=== PATIENT | female | born 1985 | race Caucasian/White ===

== ENCOUNTER 2020-04-27 16:09 | Emergency (ER) | payer BC, SELFPAY ==
--- NOTE | ~2020-04-27 | CT_ITS ---
EXAMINATION: CT HEAD WITHOUT CONTRAST CLINICAL INFORMATION: Dizziness and giddiness. COMPARISON: None TECHNIQUE: Contiguous axial imaging was performed from the skull base to vertex without intravenous administration of contrast. This CT examination was performed using dose optimization techniques as appropriate, variously including the following: *Automated exposure control *Adjustment of mA and/or kV according to patient size (this includes techniques or standardized protocols for targeted exams where dose is matched to indication/reason for exam; i.e. extremities or head) *Use of iterative reconstruction technique DLP: 804 mGy-cm FINDINGS: There is no acute extra-axial bleed, masses or midline shift. There is a punctate hyperdensity seen in the right parietal lobe adjacent to the occipital horn right lateral ventricle image 18/2 and coronal image 227/7. It measures approximately 8 mm long and 52 Hounsfield units suspicious for a small bleed. No abnormal mass effect or midline shift is seen. [place] to white matter differentiation is well preserved. No extra-axial fluid collections are identified. The ventricles are normal in size. There is no abnormal attenuation within the brain parenchyma. The osseous structures and soft tissues are normal. The mastoid air cells and visualized portions of the paranasal sinuses are well aerated. CT/CT head/brain wo con IMPRESSION: Punctate hypodensity in the right parietal lobe adjacent to the perivesical region suspicious for punctate/petechial hemorrhage. Differential diagnoses may include hyperdense vessels. If clinically indicated MRI of the brain can be performed. Results were discussed with urgent care [employer] Tasneem Stewart and ER [employer]OURNEY[employer]OWER[employer]SE [employer]PER[employer] Jim Dang at 4:00 PM
--- NOTE | ~2020-04-27 | MR_ITS ---
EXAMINATION: MR BRAIN WITHOUT CONTRAST CLINICAL INFORMATION: CT scan question bleed. COMPARISON: Head CT performed earlier today. TECHNIQUE: Multiplanar, multisequence imaging of the brain was performed without intravenous contrast. FINDINGS: There is susceptibility signal is seen within the region of hyperdensity identified on the head CT along the lateral margin of the posterior right lateral ventricular body. A small focus of susceptibility signal is present within the right putamen which may represent an area of chronic mineralization or chronic hemorrhage. No vasogenic edema is seen at this locale to suggest acuity. A few nonspecific foci of T2 hyperintensity are seen within the bilateral periventricular and deep cerebral white matter. The corpus callosum appears normal. The posterior fossa structures appear normal. The imaged portions of the upper cervical cord demonstrate normal signal. The ventricles are normal in size and configuration without evidence of hydrocephalus. No mass is seen. The major arterial flow voids appear preserved at the skull base. Incidentally noted is central protrusion at the C4-C5 level which results in mild mass effect on the ventral cord. MR/MR head/brain wo con IMPRESSION: No hemorrhage is seen to correspond to the focus of hyperdensity seen on the prior head CT. A focus of chronic mineralization or microhemorrhage is present within the right putamen. There is no acute infarct, lobar hemorrhage, mass, or extra-axial fluid collection. Scattered foci of T2 hyperintensity are seen within the periventricular and deep cerebral white matter. The imaging findings are nonspecific however given the periventricular distribution and the orthogonal orientation of some of these foci to the corpus callosum, a demyelinating process should be considered. Incidentally noted disc herniation at C4-C5 causing mild mass effect on the ventral cord. A nonemergent cervical spine MRI could be performed for further evaluation if there is concern for myelopathy.
[2020-04-27 15:40] VITALS: BP 120/73; PULSE 84; RESP 21; TEMP 36.9; O2SAT 97
[2020-04-27 15:47] LABS: MANUAL DIFF FLAG NO
[2020-04-27 15:52] LABS: Basophils Absolute Auto 0.1 X10*3/uL (0.0-0.2); Basophils Percent Auto 0.7 % (0-2); Eosinophils Absolute Auto 0.1 X10*3/uL (0.0-0.4); Eosinophils Percent Auto 0.8 % (0-4); Hemoglobin 12.8 g/dl (12.0-16.0); Imm Gran Abs Auto 0.02 X10*3/uL (0.00-0.03); Imm Gran Pct Auto 0.3 % (0.0-0.4); Lymphocytes Absolute Auto 2.4 X10*3/uL (1.2-4.9); Lymphocytes Percent Auto 31.1 % (20-40); Mean Corpuscular HGB Conc 32.8 g/dl (31.0-35.0); Mean Corpuscular Hemoglobin 29.5 pg (27.0-33.0); Mean Corpuscular Volume 89.9 fL (80-98); Monocytes Absolute Auto 0.6 X10*3/uL (0.1-1.2); Monocytes Percent Auto 7.4 % (2-11); Neutrophils Absolute Auto 4.6 X10*3/uL (2.0-8.3); Neutrophils Percent Auto 59.7 % (45-73); Platelet Count 307 X10*3/uL (160-400); Red Blood Count 4.34 X10*6/uL (4.20-5.50); Red Cell Distribution Width 13.2 % (11.0-16.0); White Blood Count 7.7 X10*3/uL (4.8-10.8)
[2020-04-27 15:54] LABS: UPreg QC Valid YES; Urine Pregnancy NEGATIVE (NEGATIVE)
[2020-04-27 16:19] LABS: Anion Gap 14 (12-20); Blood Urea Nitrogen 16 mg/dL (9-16); Calcium 9.5 mg/dL (8.4-10.2); Carbon Dioxide 26 mmol/L (22-29); Chloride 103 mmol/L (96-108); Estimated Glomerular Filt Rate > 60; Glucose Random 84 mg/dL (60-115); Potassium 4.6 mmol/L (3.3-5.1); Sodium 138 mmol/L (135-145)
--- NOTE | 2020-04-27 16:29 | ED_ITS ---
HPI - Headache General Time Seen by Provider: 04/27/20 16:14 Source: patient Mode of arrival: ambulatory Limitations: no limitations History of Present Illness HPI Narrative: Patient complaining of earache and headache for last 10 days treated with amoxicillin for ear infection had a CT scan done today which read questionable bleed versus hyperdense area on the right periventricular area. Patient been having headache is gradual onset no nausea no vomiting no light sensitive no history of hypertension no head injury no focal deficit Related Data Previous Rx's Medication Instructions Recorded amoxicillin 875 mg-potassium 1 tab PO BID 10 Days #20 tab 04/27/20 clavulanate 125 mg tablet uduacsezus-nkwrxpnshmrpz-hqsv 1 cap PO Q6H PRN #20 cap 04/27/20 [Fioricet] cetirizine 10 mg tablet 10 mg PO DAILY PRN #30 tab 04/27/20 Allergies Allergy/AdvReac Type Severity Reaction Status Date / Time No Known Allergies Allergy Verified 04/27/20 16:14 Review of Systems Review of Systems: Constitutional : No Weight loss, No Fever, No Chills ENT/Mouth : No sore throat, No Rhinorrhea Eyes: No Eye Pain, No Swelling Cardiovascular : No Chest Pain, no palpitations Respiratory : No Cough, No Sputum, no shortness of breath Gastrointestinal : no Nausea, No Vomiting, No Diarrhea, No abdominal Pain, no black stools Genitourinary : No Dysuria, No Urinary Frequency Musculoskeletal : No joint pain, No Myalgias, No Joint Swelling Skin : No Skin Lesions, No rash Neuro : No Weakness, No Numbness, No Dizziness, + Headache Psych : No Anxiety/Panic, No Depression Heme/Lymph: No Bruising, No Lymphadenopathy Endocrine : No Polyuria, No Polydipsia All other systems reviewed and are negative Physical Exam Vital Signs: Vital Signs: Last Vital Signs Temp 98.8 F 04/27/20 20:05 Pulse 72 04/27/20 20:05 Resp 20 04/27/20 20:05 BP 100/63 04/27/20 20:05 Pulse Ox 99 04/27/20 20:05 Appearance: Alert. Oriented X3. No acute distress. Eyes: Pupils equal, round and reactive to light. ENT: Pharynx normal. Neck: Normal inspection. Neck supple. CVS: Normal heart rate and rhythm. Pulses normal. Respiratory: No respiratory distress. Breath sounds normal. Abdomen: Soft and nontender. Bowel sounds are present, no mass palpable, no CVA tenderness Skin: Skin warm and dry. Normal skin color. Normal skin turgor. Extremities: No lower extremity edema. Neuro: Oriented X 3. No motor deficit. No sensory deficit. Course Course Course Narrative: MRI of brain negative for any acute bleed chronic changes patient advised to follow-up with neurologist MDM - Headache MDM Narrative Medical decision making narrative: Patient headache likely typical migraine CT scan finding likely hyperdense calcium deposit not a bleed case discussed with radiologist advised MRI to confirm will get MRI Lab Data Result diagrams: 04/27/20 15:03 04/27/20 15:03 Labs: Lab Results 04/27/20 04/27/20 04/27/20 Range/Units 15: 15:03 15:03 WBC 7.7 (4.8-10.8) X10*3/uL RBC 4.34 (4.20-5.50) X10*6/uL Hgb 12.8 (12.0-16.0) g/dl Hct 39.0 (37-47) % MCV 89.9 (80-98) fL MCH 29.5 (27.0-33.0) pg MCHC 32.8 (31.0-35.0) g/dl RDW 13.2 (11.0-16.0) % Plt Count 307 (160-400) X10*3/uL MPV 9.0 L (9.4-12.3) fL Immature Gran % (Auto) 0.3 (0.0-0.4) % Neut % (Auto) 59.7 (45-73) % Lymph % (Auto) 31.1 (20-40) % [place] % (Auto) 7.4 (2-11) % Eos % (Auto) 0.8 (0-4) % Baso % (Auto) 0.7 (0-2) % Lymph # (Auto) 2.4 (1.2-4.9) X10*3/uL [place] # (Auto) 0.6 (0.1-1.2) X10*3/uL Eos # (Auto) 0.1 (0.0-0.4) X10*3/uL Baso # (Auto) 0.1 (0.0-0.2) X10*3/uL Abs Immat Gran (auto) 0.02 (0.00-0.03) X10*3/uL Absolute Neuts (auto) 4.6 (2.0-8.3) X10*3/uL Absolute Nucleated RBC 0.000 (0.0-0.012) X10*3/uL Nucleated RBC % (auto) 0.0 (0.0-0.2) /100WBC Sodium 138 (135-145) mmol/L Potassium 4.6 (3.3-5.1) mmol/L Chloride 103 (96-108) mmol/L Carbon Dioxide 26 (22-29) mmol/L Anion Gap 14 (12-20) BUN 16 (9-16) mg/dL Creatinine 0.94 (0.5-1.4) mg/dL Estim Creat Clear Calc TNP Estimated GFR > 60 Random Glucose 84 (60-115) mg/dL Calcium 9.5 (8.4-10.2) mg/dL TSH 1.88 (0.32-4.0) uIU/mL Urine Test NEGATIVE (NEGATIVE) Discharge Plan Discharge Clinical Impression: Migraine headache Qualifiers: Migraine type: unspecified Status migrainosus presence: without status migrainosus Intractability: not intractable Qualified Code(s): G43.909 - Migraine, unspecified, not intractable, without status migrainosus Patient Disposition: Home, Self-Care Instructions: Migraine Headache (ED) Additional Instructions: Take medication as advised for headache and follow with urologist Prescriptions: New xlsvcixksf-jirqlmgtrzuoi-ffql [Fioricet] 50-300-40 mg capsule 1 cap PO Q6H PRN (Reason: pain) Qty: 20 RF: 0 No Action amoxicillin-pot clavulanate [Augmentin] 875-125 mg tablet 1 tab PO BID 10 Days Qty: 20 RF: 0 cetirizine [Zyrtec] 10 mg tablet 10 mg PO DAILY PRN (Reason: allergy symptoms) Qty: 30 RF: 0 Referrals: Lynn Rachel MD [Physician] - 1 week Interventions: ED Discharge Assessment Last Done: 04/27/20 20:31 Discharge Date/Time: 04/27/20 20:30
[2020-04-27 16:41] LABS: TSH reflex Free T4 1.88 uIU/mL (0.32-4.0)
--- NOTE | 2020-04-27 17:25 | PC.NURSE ---
presently in MRI
--- NOTE | 2020-04-27 17:58 | PC.NURSE ---
patient returned from MRI.
--- NOTE | 2020-04-27 17:59 | PC.NURSE ---
patient alert and oriented times four presently. sent from pcp for f/u MRI after a ct scan showed a small brain bleed . Patient states had double ear infection and was placed on ABTs. symptoms of headache and dizziness continued. Provider sent atient for ct and after results to ED.
[2020-04-27 18:15] VITALS: BP 115/67; PULSE 69; RESP 17; TEMP 37.2; O2SAT 96
[2020-04-27 20:05] VITALS: BP 100/63; PULSE 72; RESP 20; TEMP 37.1; O2SAT 99
[2020-04-29 01:42] LABS: EBV-VCA IgM Ab <36.00 U/mL
[2020-04-29 11:20] LABS: Monotest Negative (Negative)
== END 2020-04-27 20:30 | disposition home or self-care (01) ==
LOC: HO.ED 16:09
PROVIDERS: Emergency Provider Internal Medicine; Visit Provider Nurse Practitioner Family
DX: G43.909 Migraine, unspecified, not intractable, without status migrainosus (principal)
CPT/HCPCS: 36415; 70450; 70551; 80048; 81025; 84443; 85025; 86308; 86664; 86665; 87086; 99282; 99285

== ENCOUNTER 2020-05-02 13:05 | Emergency (ER) | payer BC, SELFPAY ==
--- NOTE | 2020-05-02 | ECG_ITS ---
Test Reason : CHEST PAIN Blood Pressure : / mmHG Vent. Rate : 065 BPM Atrial Rate : 065 BPM P-R Int : 140 ms QRS Dur : 076 ms QT Int : 394 ms P-R-T Axes : 066 063 027 degrees QTc Int : 409 ms Normal sinus rhythm Normal ECG No previous ECGs available Referred By: Generic ED Physician Electronically Signed By:NAOMI LEACH
--- NOTE | ~2020-05-02 | XR_ITS ---
EXAMINATION: XR CHEST CLINICAL INFORMATION: Chest pain. COMPARISON: None TECHNIQUE: Frontal view of the chest was obtained. FINDINGS: The lungs are well-expanded and clear of acute process. The heart size and pulmonary vascularity is normal. No gross bony abnormality seen. XR/XR chest 1V IMPRESSION: Unremarkable chest exam
[2020-05-02 13:35] VITALS: BP 119/73; PULSE 86; RESP 16; TEMP 36.8; O2SAT 100; BMI 29.5
--- NOTE | 2020-05-02 15:38 | ED.CHESTPAIN ---
HPI - Chest Pain General Chief Complaint: Chest Pain Stated Complaint: L LOW CP,SOB X'S DAYS,FEELS OFF,JUMBLED THOUGHTS Time Seen by Provider: 05/02/20 13:30 History of Present Illness HPI narrative: Patient complains of an episode of chest pain shortness of breath palpitations and tingling in fingers and toes along with feeling very anxious at home today at about 9 in the morning approximately 6-7 hours ago She has no chest pain or shortness of breath now and is concerned about the resolved episode This happened at rest, there are no exertional symptoms no nausea no vomiting no sweating Related Data Previous Rx's Medication Instructions Recorded yikpazcxwc-bqmfmsfbgscia-ipyk 1 cap PO Q6H PRN #20 cap 04/27/20 [Fioricet] escitalopram oxalate 5 mg tablet 5 mg PO DAILY 30 Days #30 tab 05/01/20 meclizine 25 mg tablet 25 mg PO TID PRN 7 Days #21 tab 05/01/20 meloxicam 15 mg tablet 15 mg PO DAILY PRN 30 Days #30 tab 05/01/20 lorazepam [Ativan] 0.5 mg PO TID PRN #10 tab 05/02/20 Allergies Allergy/AdvReac Type Severity Reaction Status Date / Time No Known Allergies Allergy Verified 05/01/20 10:22 Review of Systems Review of Systems: Episode of chest pain shortness of breath tingling that is resolved of the positives Negatives are no weakness no fever no chills no exertional symptoms no abdominal pain no nausea no vomiting no diarrhea, no rash no leg swelling no calf pain no numbness no weakness no confusion PMFSH Past Medical History Medical History (Updated 05/03/20 @ 00:01 by Tommie Morin) Anxiety Cervical herniated disc Migraines Surgical History (Updated 05/01/20 @ 10:26 by Jewels Mcmahon MD) History of carpal tunnel release of both wrists Family History Family History Mother Thyroid cancer Arthritis Pre-diabetes Father Heart disease History of heart attack Social History Social History Alcohol intake: never Smoking Status: Never smoker Physical Exam Vital Signs: Vital Signs: Last Vital Signs Temp 98.3 F 05/02/20 17:43 Pulse 63 05/02/20 17:43 Resp 16 05/02/20 17:43 BP 106/57 L 05/02/20 17:43 Pulse Ox 99 05/02/20 17:43 Body Mass Index 29.5 General appearance no acute distress, A&O x3, cooperative Head is normocephalic atraumatic The pharynx is moist with normal mucous membranes, no drooling, voice is normal The neck is supple The heart rate and rhythm are regular no murmur Chest is clear to auscultation bilaterally with full symmetric little equal breath sounds, no tenderness to chest wall, no pain with deep breath The abdomen is soft nontender Extremities no rash no edema no calf tenderness The skin no rashes Neuro cranial nerves 2-12 intact, motor is 5/5 x4 gait is normal interaction is normal cerebellar exam is normal, sensation is intact and symmetrical Course Course Course Narrative: Patient evaluated for episode at home that lasted for several minutes and included tingling in fingers pain with deep breath feeling of heart racing and chest pain and shortness of breath Troponin was negative and she had had symptoms for over 6 hours, EKG did not show any ischemic event, chest x-ray was normal Patient admits to previous episodes of anxiety and it is possible that this was another anxiety attack as she is experiencing stress at this time She is advised to follow with her doctor for further evaluation and she is given a script for Ativan as a trial to see if she gets another episode of Ativan relieves it for possible anxiety attack She was concerned about some findings on an MRI from previous visit which had findings of nonspecific periventricular foci of the corpus callosum a deny Ling process might be considered according to the MRI She has seen her primary doctor about this and does have follow-up with a neurologist to determine if any further imaging is needed EKG was normal sinus rhythm with a rate of 65, no acute ST changes no acute ischemic changes QRS duration was normal QT was normal MDM - Chest Pain Lab Data Attestation: I reviewed the patient's lab results. Result diagrams: 05/02/20 15:37 05/02/20 15:37 Labs: Lab Results 05/02/20 05/02/20 05/02/20 Range/Units 15:37 15:37 15:37 WBC 7.8 (4.8-10.8) X10*3/uL RBC 4.29 (4.20-5.50) X10*6/uL Hgb 12.8 (12.0-16.0) g/dl Hct 38.1 (37-47) % MCV 88.8 (80-98) fL MCH 29.8 (27.0-33.0) pg MCHC 33.6 (31.0-35.0) g/dl RDW 13.2 (11.0-16.0) % Plt Count 351 (160-400) X10*3/uL MPV 8.7 L (9.4-12.3) fL Immature Gran % (Auto) 0.3 (0.0-0.4) % Neut % (Auto) 67.8 (45-73) % Lymph % (Auto) 24.9 (20-40) % [place] % (Auto) 5.4 (2-11) % Eos % (Auto) 0.8 (0-4) % Baso % (Auto) 0.8 (0-2) % Lymph # (Auto) 1.9 (1.2-4.9) X10*3/uL [place] # (Auto) 0.4 (0.1-1.2) X10*3/uL Eos # (Auto) 0.1 (0.0-0.4) X10*3/uL Baso # (Auto) 0.1 (0.0-0.2) X10*3/uL Abs Immat Gran (auto) 0.02 (0.00-0.03) X10*3/uL Absolute Neuts (auto) 5.3 (2.0-8.3) X10*3/uL Absolute Nucleated RBC 0.000 (0.0-0.012) X10*3/uL Nucleated RBC % (auto) 0.0 (0.0-0.2) /100WBC Hold Blue Top SEE NOTE Sodium 139 (135-145) mmol/L Potassium 4.1 (3.3-5.1) mmol/L Chloride 106 (96-108) mmol/L Carbon Dioxide 26 (22-29) mmol/L Anion Gap 11 L (12-20) BUN 15 (9-16) mg/dL Creatinine 0.92 (0.5-1.4) mg/dL Estim Creat Clear Calc 76.8 Estimated GFR > 60 Random Glucose 93 (60-115) mg/dL Calcium 8.9 D (8.4-10.2) mg/dL Troponin I High Sens (<3.5-17.0) ng/L Urine Color Urine Appearance Urine pH (5.0-8.0) Ur Specific [place] (1.005-1.025) Urine Protein (NEG-TRACE) MG/DL Urine Glucose (UA) (NEG) MG/DL Urine Ketones (NEG) MG/DL Urine Blood (NEG) Urine Nitrite (NEG) Ur Leukocyte Esterase (NEG) Urine RBC (0) /HPF Urine WBC (0-4) /HPF Ur Squamous Epith Cells /LPF Urine Bacteria /LPF Urine Test (NEGATIVE) 05/02/20 05/02/20 05/02/20 Range/Units 15:38 15:50 15:50 WBC (4.8-10.8) X10*3/uL RBC (4.20-5.50) X10*6/uL Hgb (12.0-16.0) g/dl Hct (37-47) % MCV (80-98) fL MCH (27.0-33.0) pg MCHC (31.0-35.0) g/dl RDW (11.0-16.0) % Plt Count (160-400) X10*3/uL MPV (9.4-12.3) fL Immature Gran % (Auto) (0.0-0.4) % Neut % (Auto) (45-73) % Lymph % (Auto) (20-40) % [place] % (Auto) (2-11) % Eos % (Auto) (0-4) % Baso % (Auto) (0-2) % Lymph # (Auto) (1.2-4.9) X10*3/uL [place] # (Auto) (0.1-1.2) X10*3/uL Eos # (Auto) (0.0-0.4) X10*3/uL Baso # (Auto) (0.0-0.2) X10*3/uL Abs Immat Gran (auto) (0.00-0.03) X10*3/uL Absolute Neuts (auto) (2.0-8.3) X10*3/uL Absolute Nucleated RBC (0.0-0.012) X10*3/uL Nucleated RBC % (auto) (0.0-0.2) /100WBC Hold Blue Top Sodium (135-145) mmol/L Potassium (3.3-5.1) mmol/L Chloride (96-108) mmol/L Carbon Dioxide (22-29) mmol/L Anion Gap (12-20) BUN (9-16) mg/dL Creatinine (0.5-1.4) mg/dL Estim Creat Clear Calc Estimated GFR Random Glucose (60-115) mg/dL Calcium (8.4-10.2) mg/dL Troponin I High Sens < 3.5 (<3.5-17.0) ng/L Urine Color YELLOW Urine Appearance CLEAR Urine pH 6.0 (5.0-8.0) Ur Specific [place] <= 1.005 (1.005-1.025) Urine Protein NEG (NEG-TRACE) MG/DL Urine Glucose (UA) NEG (NEG) MG/DL Urine Ketones NEG (NEG) MG/DL Urine Blood TRACE (NEG) Urine Nitrite NEG (NEG) Ur Leukocyte Esterase NEG (NEG) Urine RBC 0-2 (0) /HPF Urine WBC 0 (0-4) /HPF Ur Squamous Epith Cells 1+ /LPF Urine Bacteria 1+ /LPF Urine Test NEGATIVE (NEGATIVE) Discharge Plan Discharge Clinical Impression: Chest pain not due to acute coronary syndrome Patient Disposition: Home, Self-Care Additional Instructions: Your workup today did not reveal any dangerous or emergency condition at this moment in time There is a chance her symptoms were from anxiety as some of his symptoms may have been symptoms of an anxiety attack so you can try Ativan if these symptoms return You should not drive for several hours after taking Ativan is it can cause drowsiness Follow with primary doctor for further evaluation Return any time any worse condition or any concerns Prescriptions: New lorazepam [Ativan] 0.5 mg tablet 0.5 mg PO TID PRN (Reason: anxiety) Qty: 10 RF: 0 No Action rxrjvidrrh-cedvoeeywenwc-tlwi [Fioricet] 50-300-40 mg capsule 1 cap PO Q6H PRN (Reason: pain) Qty: 20 RF: 0 escitalopram oxalate 5 mg tablet 5 mg PO DAILY 30 Days Qty: 30 RF: 1 meclizine 25 mg tablet 25 mg PO TID PRN (Reason: dizziness) 7 Days Qty: 21 RF: 0 meloxicam 15 mg tablet 15 mg PO DAILY PRN (Reason: pain) 30 Days Qty: 30 RF: 0 Interventions: ED Discharge Assessment Last Done: 05/02/20 18:50 Discharge Date/Time: 05/02/20 18:53
[2020-05-02 15:42] VITALS: BP 106/55; PULSE 66; RESP 14; TEMP 37; O2SAT 100
[2020-05-02 15:45] LABS: MANUAL DIFF FLAG NO
[2020-05-02 15:46] LABS: Basophils Absolute Auto 0.1 X10*3/uL (0.0-0.2); Basophils Percent Auto 0.8 % (0-2); Eosinophils Absolute Auto 0.1 X10*3/uL (0.0-0.4); Eosinophils Percent Auto 0.8 % (0-4); Hematocrit 38.1 % (37-47); Hemoglobin 12.8 g/dl (12.0-16.0); Imm Gran Abs Auto 0.02 X10*3/uL (0.00-0.03); Imm Gran Pct Auto 0.3 % (0.0-0.4); Lymphocytes Absolute Auto 1.9 X10*3/uL (1.2-4.9); Lymphocytes Percent Auto 24.9 % (20-40); Mean Corpuscular HGB Conc 33.6 g/dl (31.0-35.0); Mean Corpuscular Hemoglobin 29.8 pg (27.0-33.0); Mean Corpuscular Volume 88.8 fL (80-98); Mean Platelet Volume 8.7 fL (9.4-12.3); Monocytes Absolute Auto 0.4 X10*3/uL (0.1-1.2); Monocytes Percent Auto 5.4 % (2-11); Neutrophils Absolute Auto 5.3 X10*3/uL (2.0-8.3); Neutrophils Percent Auto 67.8 % (45-73); Platelet Count 351 X10*3/uL (160-400); Red Blood Count 4.29 X10*6/uL (4.20-5.50); Red Cell Distribution Width 13.2 % (11.0-16.0); White Blood Count 7.8 X10*3/uL (4.8-10.8)
[2020-05-02 15:59] LABS: Appearance Urine CLEAR; Color Urine YELLOW; Glucose Urine UA NEG (NEG); Leukocyte Esterase Urine NEG (NEG); Nitrite Urine NEG (NEG); Specific Gravity - Urine <= 1.005 (1.005-1.025); Urine Blood TRACE (NEG); Urine Ketones NEG (NEG); Urine Protein NEG (NEG-TRACE)
[2020-05-02 16:01] LABS: UPreg QC Valid YES; Urine Pregnancy NEGATIVE (NEGATIVE)
[2020-05-02 16:05] LABS: Bacteria Urine 1+ /LPF; RBC Urine 0-2 /HPF (0); Squamous Epithelial Cell Urine 1+ /LPF; WBC Urine 0 /HPF (0-4)
[2020-05-02 16:12] LABS: Anion Gap 11 (12-20); Blood Urea Nitrogen 15 mg/dL (9-16); Calcium 8.9 mg/dL (8.4-10.2); Carbon Dioxide 26 mmol/L (22-29); Chloride 106 mmol/L (96-108); Creatinine Clr Calc Pharmacy 76.8; Estimated Glomerular Filt Rate > 60; Glucose Random 93 mg/dL (60-115); Potassium 4.1 mmol/L (3.3-5.1); Sodium 139 mmol/L (135-145)
[2020-05-02 16:19] LABS: Troponin-I High Sensitivity < 3.5 ng/L (<3.5-17.0)
[2020-05-02 17:43] VITALS: BP 106/57; PULSE 63; RESP 16; TEMP 36.8; O2SAT 99
== END 2020-05-02 18:53 | disposition home or self-care (01) ==
PROVIDERS: Emergency Provider Emergency Medicine; PCP Internal Medicine
DX: R07.89 Other chest pain (principal)
CPT/HCPCS: 36415; 71045; 80048; 81001; 81025; 84484; 85025; 93005; 99283

== ENCOUNTER 2020-05-08 19:36 | Outpatient (REF) | payer BC, SELFPAY ==
--- NOTE | ~2020-05-08 | MR_ITS ---
EXAMINATION: MR CERVICAL SPINE WITHOUT CONTRAST CLINICAL INFORMATION: Left finger numbness. Left toe numbness. Neck pain. COMPARISON: None TECHNIQUE: MRI of the cervical spine was obtained using routine sequences without contrast. FINDINGS: VERTEBRAL BODIES AND PARASPINAL SOFT TISSUES: The marrow signal is mildly heterogeneous with regions of fatty change. There are no compression fractures. There is a mild retrosubluxation at the C4-C5 level. No marrow or soft tissue edema is seen. The paraspinal soft tissues are unremarkable. The cervical vertebral artery flow voids are maintained. The imaged lung apices are grossly clear. CERVICOMEDULLARY JUNCTION AND VISUALIZED POSTERIOR FOSSA: The craniovertebral junction and imaged portions of the brain parenchyma appear normal. No cord signal abnormality or syrinx is seen. SPINAL LEVELS: C2-C3: No disc pathology, central canal stenosis, or foraminal narrowing. Mild facet arthropathy. C3-C4: No disc pathology. Patent central canal and foramina. C4-C5: Central disc protrusion with mild impression upon the ventral cord and ventral thecal sac. No central canal stenosis or foraminal narrowing. C5-C6: Small left paracentral disc protrusion. No central canal stenosis or foraminal narrowing. C6-C7: No disc abnormality. No central canal stenosis or foraminal encroachment. C7-T1: Well-hydrated normal appearance of the disc. MR/MR cervical spine wo con IMPRESSION: Central disc protrusion and mild retrosubluxation at the C4-C5 level with mild ventral cord deformity. Small left paracentral disc protrusion at the C5-C6 level.
== END 2020-05-08 19:37 | disposition home or self-care (01) ==
LOC: HO.MRI 19:36
PROVIDERS: Visit Provider Internal Medicine
DX: M50.20 Other cervical disc displacement, unspecified cervical region (principal)
CPT/HCPCS: 72141

== ENCOUNTER 2020-05-21 10:00 | Outpatient (RCR) | payer BC, SELFPAY ==
--- NOTE | 2020-05-14 12:28 | MHC.PT.EP ---
[facility] Office [place] Office [place] Office [address] James Freitas [address] [phone] F: [phone] F: [phone] F: [phone] F: [phone] Physical Therapy Plan of Care Date of Evaluation: 05/14/20 Date of Surgery: None Diagnosis: Cervical disk protrusion Assessment: Pt is a 34 y/o F referred to PT with cervical disc protrusion. Chief complaint of neck and shoulder pain, headaches, and intermittent numbness into L UEs and R hand that has been worsening over last several weeks. Pt presents to PT today with pain, numbness in (L) UE, postural abnormalities, cervical ROM deficits, normal DTR's, normal coordination, and periscapular weakness. Pt postural abnormalities are likely related to periscapular weakness, pain, and poor postural awareness. S/s are consistent with cervical derangement causing pain and numbness that interfere with work, sitting, working out, and neck movement. Pt will benefit from skilled PT 2x/week for 5 weeks to improve postural abnormalities, cervical ROM, and periscapular strength to aid in work, working out at home, driving, and ADLs. Of note, pt has an appointment tomorrow to discuss abnormalities with brain MRI and what further w/u will occur. Frequency and Duration: The patient will be seen 2x/week for 5 weeks Short Term Goals: 3 Weeks: 1) Pt will be independent in HEP to maintain gains between sessions 2) Pt pain will decrease 50% to aid in return to work. 3) Pt will self identify and correct posture to reduce cervical strain. Residential Goals: 5 Weeks: 1) Pt will be able to sit >1 hour with no increase in pain to aid work. 2) Pt NDI will be >10/50 to demonstrate significant improvement in function 3) Pt periscapular strength will be >4/5 to aid in reaching and lifting activites. Treatment Plan: Modalities to reduce pain, spasms and effusion. Manual therapy to restore motion and function. Therapeutic exercise to improve strength and flexibility. Neuromuscular re-education for posture and balance. Therapeutic activities to return to functional activities of daily living. Electronically signed by: Daly Haro PT Please sign and return to therapist. Thank you for your referral.
--- NOTE | 2020-06-15 10:45 | MHC.PT.DC ---
[facility] [place] Office [place] Office [place] Office [address] James Freitas [address] [facility] [phone] F: [phone] F: [phone] F: [phone] F: [phone] Physical Therapy Discharge Report Diagnosis: Cervical disk protrusion Date of Surgery: None Date of Evaluation: 05/14/20 Date of Discharge: 06/15/20 Treatments to Date: 2 Cancellations to Date: 0 No Shows to Date: 0 Discharge Status: Patient Elected to Stop Physician Discontinued Tx Discharge Summary: PT called to discharge reporting neurologist would like her to discontinue PT at this time. Electronically signed by: Daly Haro PT Please sign and return to therapist. Thank you for your referral.
== END 2020-06-15 10:47 | disposition home or self-care (01) ==
LOC: HO.PTCHIC 10:00
PROVIDERS: PCP Internal Medicine; Visit Provider Internal Medicine
DX: M50.20 Other cervical disc displacement, unspecified cervical region (principal)
CPT/HCPCS: 97110; 97140; 97162

== ENCOUNTER 2020-06-04 07:00 | Outpatient (RCR) | payer BC, SELFPAY ==
[2020-06-01 07:05] VITALS: BP 138/90
--- NOTE | 2020-06-15 07:45 | MHC.PT.DC ---
[facility] Office [place] Office [place] Office [address] James Freitas [address] [phone] F: [phone] F: [phone] F: [phone] F: [phone] Physical Therapy Discharge Report Diagnosis: Dizziness Date of Surgery: NA Date of Evaluation: 06/01/20 Date of Discharge: Treatments to Date: 1 Cancellations to Date: 0 No Shows to Date: 0 Discharge Status: Patient Elected to Stop Physician Discontinued Tx Discharge Summary: Pt called and self discharged stating her neurologist would like to hold PT at this time. Electronically signed by: Daly Haro PT Please sign and return to therapist. Thank you for your referral.
== END 2020-06-15 10:47 | disposition home or self-care (01) ==
LOC: HO.PTCHIC 07:00
PROVIDERS: PCP Internal Medicine; Visit Provider Internal Medicine
DX: M50.20 Other cervical disc displacement, unspecified cervical region (principal); R42 Dizziness and giddiness
CPT/HCPCS: 97112; 97162

== ENCOUNTER 2020-06-05 14:39 | Outpatient (REF) | payer BC, SELFPAY ==
[2020-06-05 15:49] LABS: Alanine Aminotransferase 16 U/L (0-31); Alkaline Phosphatase 57 U/L (39-117); Aspartate Amino Transferase 22 U/L (5-31); Bilirubin Direct 0.2 mg/dL (0.0-0.5); Bilirubin Total 0.6 mg/dL (0.0-1.0); Total Protein 7.8 g/dL (6.5-8.0)
[2020-06-05 16:33] LABS: Erythrocyte Sedimentation Rate 3 MM/HR (0-20)
[2020-06-06 09:21] LABS: Lyme Abs Screen <0.90 index
[2020-06-06 10:06] LABS: Syphilis Screen Nonreactive (Nonreactive)
[2020-06-06 15:22] LABS: IgA 110 mg/dL (47-310); IgG 1039 mg/dL (600-1640); IgM 200 mg/dL (50-300)
[2020-06-06 20:57] LABS: Anti Nuclear Antibody Screen NEGATIVE (NEGATIVE)
== END 2020-06-05 14:40 | disposition home or self-care (01) ==
LOC: HO.LAB 14:39
PROVIDERS: PCP Internal Medicine; Visit Provider Psychiatry & Neurology Neurology
DX: G37.9 Demyelinating disease of central nervous system, unspecified (principal)
CPT/HCPCS: 36415; 80076; 82784; 85652; 86038; 86039; 86334; 86618; 86780

== ENCOUNTER 2020-06-20 07:35 | Outpatient (REF) | payer BC, SELFPAY ==
[2020-06-20] VITALS (8 sets, daily range): BP systolic 92–124; BP diastolic 3–70; PULSE 60–86; RESP 16–18; TEMP 36.4–36.9; O2SAT 97–100; BMI 30.2
--- NOTE | 2020-06-20 08:00 | OP_ITS ---
SURGEON: Froilan Rachel MD PREOPERATIVE DIAGNOSIS: POSTOPERATIVE DIAGNOSIS: PROCEDURE PERFORMED: Lumbar puncture. ESTIMATED BLOOD LOSS: COMPLICATIONS: ANESTHESIA: ASSISTANTS: SPECIMENS: DESCRIPTION OF PROCEDURE: Risks and benefits of lumbar puncture were discussed with her. Questions were answered before the procedure. She was placed in left lateral position. Lower lumbar area was cleaned with Betadine and draped. 1% lidocaine was injected in CSF cavity. Clear CSF was obtained in 4 tubes. Trocar was replaced and needle removed. Area was cleaned and a Band-Aid applied. Patient tolerated procedure well and CSF was sent to the lab. MD NIYAH Voss/MODL / [id number] MTDD
[2020-06-20 10:05] LABS: Glucose CSF 55 mg/dL; Total Protein CSF 27.2 mg/dL (15-45)
[2020-06-20 10:48] LABS: CSF Appearance Clear, Colorless; CSF Tube # 3
[2020-06-20 10:58] LABS: Appearance CSF CLEAR; CSF Tube # 4; Color CSF COLORLESS; Red Blood Cell CSF 0 MM*3; White Blood Cell CSF 7 MM*3
[2020-06-20 10:59] LABS: CSF Monos 0 %; CSF Other Cells % 0 %; Lymphocytes CSF 100 %; Neutrophils CSF 0 %
[2020-06-20 13:49] LABS: Oligoclonal Serum Yes
[2020-06-24 22:11] LABS: Albumin 4.1 g/dL (3.5-5.2); Albumin, CSF 15.6 mg/dL (8.0-42.0); IgG 840 mg/dL (600-1640); IgG Synthesis Rate 8.6 mg/24 h (-9.9-3.3); IgG, CSF 3.8 mg/dL (0.8-7.7)
== END 2020-06-20 11:00 | disposition home or self-care (01) ==
LOC: HO.MS 07:35
PROVIDERS: Visit Provider Psychiatry & Neurology Neurology
PROC: 009U3ZZ Drainage of Spinal Canal, Percutaneous Approach (ICD-10-PCS; CPT 62270; principal; 2020-06-20 08:00)
DX: G37.9 Demyelinating disease of central nervous system, unspecified (principal); G43.909 Migraine, unspecified, not intractable, without status migrainosus
CPT/HCPCS: 62270; 82042; 82945; 83916; 84157; 87015; 87070; 87205; 89051

== ENCOUNTER 2020-06-21 15:04 | Emergency (ER) | payer BC, SELFPAY ==
[2020-06-21 15:07] VITALS: BP 126/67; PULSE 90; RESP 18; TEMP 36.9; O2SAT 99; BMI 30.2
--- NOTE | 2020-06-21 15:57 | ED.GENADULT ---
HPI - General Adult General Chief complaint: General Medical Stated complaint: SURG PROCEDURE Time Seen by Provider: 06/21/20 15:26 Source: patient and other (Dr. Rachel, expect ) Mode of arrival: ambulatory Limitations: no limitations History of Present Illness HPI narrative: 34-year-old female who presents emergency department for evaluation of headache that occurred after receiving a spinal tap yesterday. The patient is under the care of our neurologist, Dr. Rachel and is being worked up for possible multiple sclerosis. The patient had a spinal tap done yesterday at 8:00 a.m. in the outpatient surgical day care center. She states that she lied flat on her back for approximately 2 hours and then went home. She states that she spent all day resting and at around 10:00 p.m. she developed a headache. She describes the headache as a pressure-like sensation in and a squeezing sensation a around the top of her head. The headache is worse with standing and slightly relieved by lying down. She states that the headache has been constant and was worse today while she was at work. She contacted her neurologist who advised her to come to the emergency department for evaluation and for possible blood patch. The patient states that the headache is constant and is severe, 10/10 at its worst. She has some slight tightness in her neck. She states she gets a tingling chills sensation that goes down both legs. She has had nausea but no vomiting. She denied fever, chills, chest pain, shortness of breath, weakness, loss of bowel or bladder control. Related Data Previous Rx's Medication Instructions Recorded [id number] 1 cap PO Q6H PRN #20 cap 04/27/20 [Fioricet] meclizine 25 mg tablet 25 mg PO TID PRN 7 Days #21 tab 05/01/20 meloxicam 15 mg tablet 15 mg PO DAILY PRN 30 Days #30 tab 05/01/20 lorazepam [Ativan] 0.5 mg PO TID PRN #10 tab 05/02/20 zolpidem 5 mg tablet 5 mg PO BEDTIME PRN 30 Days #30 tab 06/01/20 escitalopram oxalate 10 mg tablet 10 mg PO DAILY #30 tab 06/07/20 metoclopramide HCl [Reglan] 10 mg PO Q6H PRN #14 tab 06/21/20 Allergies Allergy/AdvReac Type Severity Reaction Status Date / Time No Known Allergies Allergy Verified 05/01/20 10:22 Review of Systems Review of Systems: Yes all other systems are reviewed and are negative [facility] Past Medical History [facility] Narrative: The patient denies tobacco, alcohol and drug use. Medical History Anxiety Anxiety and depression Cervical herniated disc Migraine Migraines Surgical History History of carpal tunnel release of both wrists Family History Family History Mother Thyroid cancer Arthritis Pre-diabetes Father Heart disease History of heart attack Social History Social History Alcohol intake: never Smoking Status: Never smoker Advance Directives: No Advance Directives Information Provided: Yes Physical Exam Vital Signs: Vital Signs: Last Vital Signs Temp 98.5 F 06/21/20 15:07 Pulse 90 06/21/20 15:07 Resp 18 06/21/20 15:07 BP 126/67 06/21/20 15:07 Pulse Ox 99 06/21/20 15:07 Body Mass Index 30.2 Const: General: cooperative Orientation/consciousness: oriented to person and oriented to place Limitations: no limitations HENMT: Head: Yes normal to inspection, Yes normocephalic and Yes atraumatic Ears: external ears normal General nose exam: Normal external nose present Face and sinus: Yes normal facial exam Mouth: Normal oral and palatal mucosa present Throat: Yes posterior oropharynx normal Eyes: Periorbital: periorbital findings normal Eyelids: Yes eyelids normal Conjunctivae: conjunctivae normal Sclerae: sclerae normal Corneas: corneas normal Pupils: Equal, round and reactive pupils present Direct Ophthalmoscopy: normal light reflex Neck: Neck: Yes full ROM, Yes no lymphadenopathy, Yes no meningeal signs, Yes trachea midline and Yes supple Chest: Chest palpation & inspection: normal inspection of the chest and normal palpation of entire chest wall Resp: Effort & Inspection: normal respiratory effort and able to speak in complete sentences Auscultation: clear to auscultation bilaterally Cardio: Rate: regular rate Rhythm: regular rhythm Heart sounds: S1 normal heart sound present, S2 normal heart sound present and no murmurs GI: Inspection: Yes normal to inspection Palpation (GI): Soft to palpation, nontender, no guarding, not rigid and No hepatosplenomegaly present : General: Yes no CVA tenderness Back/Spine/Pelvis: Back: no CVA tenderness Cervical Spine: normal cervical lordosis Thoracic/Lumbar Spine: thoracic and lumbar spine normal to inspection Skin: Lesions: no lesions Rashes: no rashes Wounds: no wounds Neuro: General: oriented to person, oriented to place and no meningeal signs Cranial nerves: Yes CN's II-XII intact bilaterally and Yes Equal, round and reactive pupils present Cognition (Neuro): normal cognition Motor exam (neuro): 5/5 motor strength present throughout Extrem: General: Yes normal to inspection and Yes full ROM Psych: Appearance: well kempt Mental Status: mental status grossly normal Speech and movement: Normal speech and movement present Affect: normal affect Attitude: cooperative Thought process: Normal thought process present Thought content: Normal thought content present Course Course Course Narrative: 34-year-old female who presents emergency department for evaluation headache that occurred after a diagnostic spinal tap done yesterday at 8:00 a.m.. The patient's neurologic exam was unremarkable. Patient's presentation is consistent with a spinal headache. I did discuss a blood patch with the anesthesiologist on-call, he is currently in the operating room and will be in the operating room for several hours. He recommended giving the patient IV fluid and treating the patient's headache. His recommendation was that if the patient's headache was not improved by more than 50% by tomorrow, the patient should return to the emergency depart for evaluation of her headache and for possible blood patch. The patient's headache will be treated with Toradol 30 mg IV, regular and 10 mg IV and Benadryl 50 mg IV. She will also be treated with 2 L of normal saline IV. 1737: The patient's headache improved from 8/10 to 2/10. Patient states she is feeling better and would like to go home. The patient did complete her 2 L of normal saline as well. She was discharged home with printed and verbal instructions. She was started on the following headache regimen: Reglan 10 mg, Benadryl 50 mg, Excedrin migraine 1 tablet every 6 hours as needed for headache. Discharge Plan Discharge Clinical Impression: Spinal headache Patient Disposition: Home, Self-Care Instructions: Lumbar Puncture (ED) Additional Instructions: Your headache is consistent with a spinal headache. You were treated with Reglan 10 mg IV, Benadryl 50 mg IV and Toradol 30 mg IV. Take the following medications together every 6 hours as needed for headache: Reglan 10 mg, 1 pill Benadryl 25 mg, 2 pills Excedrin migraine, 1 pill After you take these medications, they will make you sleepy, lie down in a dark quiet room to help the headache go away. I did speak to the anesthesiologist mark. The anesthesiologist recommended that if you are not better tomorrow morning you should return to the emergency department for re-evaluation by the emergency room doctor and Anesthesiology will see you as well to determine if you would benefit from a blood patch (injecting your own blood into your back where the spinal tap needle went in to your back). Follow-up with your doctor in 2 days. Please return to the emergency department if your symptoms get worse or if you develop any symptoms that are concerning to you. Prescriptions: New metoclopramide HCl [Reglan] 10 mg tablet 10 mg PO Q6H PRN (Reason: nausea and vomiting) Qty: 14 RF: 0 No Action zolpidem [Ambien] 5 mg tablet 5 mg PO BEDTIME PRN (Reason: sleep) 30 Days Qty: 30 RF: 0 escitalopram oxalate 10 mg tablet 10 mg PO DAILY Qty: 30 RF: 0 lorazepam [Ativan] 0.5 mg tablet 0.5 mg PO TID PRN (Reason: anxiety) Qty: 10 RF: 0 ndlunifybt-hpeqszdpqzwqb-yrnn [Fioricet] 50-300-40 mg capsule 1 cap PO Q6H PRN (Reason: pain) Qty: 20 RF: 0 meclizine 25 mg tablet 25 mg PO TID PRN (Reason: dizziness) 7 Days Qty: 21 RF: 0 meloxicam 15 mg tablet 15 mg PO DAILY PRN (Reason: pain) 30 Days Qty: 30 RF: 0
[2020-06-21] MEDS: 0.9 % Sodium Chloride 1,000 ML 999 ML IV ×2 (16:26→16:27)
[2020-06-21] MEDS: Metoclopramide HCl 10 MG/2 ML VIAL IVPUSH (16:36)
[2020-06-21] MEDS: diphenhydrAMINE HCL 50 MG/ML VIAL IVPUSH (16:36)
[2020-06-21] MEDS: Ketorolac Tromethamine 30 MG/ML VIAL IVPUSH (16:36)
[2020-06-21 18:07] VITALS: BP 104/63; PULSE 64; RESP 16; O2SAT 100
== END 2020-06-21 18:43 | disposition home or self-care (01) ==
PROVIDERS: Emergency Provider Emergency Medicine Emergency Medical Services; PCP Internal Medicine
DX: G97.1 Other reaction to spinal and lumbar puncture (principal)
CPT/HCPCS: 96361; 96374; 96375; 99284; J1200; J1885; J2765

== ENCOUNTER 2020-06-22 08:14 | Emergency (ER) | payer BC, SELFPAY ==
[2020-06-22 08:22] VITALS: BP 131/65; PULSE 73; RESP 16; TEMP 36.7; O2SAT 100; BMI 30.2
--- NOTE | 2020-06-22 08:58 | ED_ITS ---
HPI - Headache General Chief Complaint: Headache Stated Complaint: spinal headache Time Seen by Provider: 06/22/20 08:52 History of Present Illness HPI Narrative: This is a 34 years old female presented to the emergency department with a headache. She was here yesterday as well. Two days ago she had an LP for workup of AMS. His since then she has been having a headache denies any fever, any neck pain MD elicited complaint: headache Onset (ago): day(s) (2) Onset description: gradually Related Data Previous Rx's Medication Instructions Recorded tqhzmshqog-cqmctokvwtbhe-kbqb 1 cap PO Q6H PRN #20 cap 04/27/20 [Fioricet] meclizine 25 mg tablet 25 mg PO TID PRN 7 Days #21 tab 05/01/20 meloxicam 15 mg tablet 15 mg PO DAILY PRN 30 Days #30 tab 05/01/20 lorazepam [Ativan] 0.5 mg PO TID PRN #10 tab 05/02/20 zolpidem 5 mg tablet 5 mg PO BEDTIME PRN 30 Days #30 tab 06/01/20 escitalopram oxalate 10 mg tablet 10 mg PO DAILY #30 tab 06/07/20 metoclopramide HCl [Reglan] 10 mg PO Q6H PRN #14 tab 06/21/20 Allergies Allergy/AdvReac Type Severity Reaction Status Date / Time No Known Allergies Allergy Verified 05/01/20 10:22 Review of Systems Review of Systems: Yes all other systems are reviewed and are negative Cardiovascular: Cardiovascular: Reports no additional cardiovascular complaints Musculoskeletal: Musculoskeletal: Reports no additional musculoskeletal complaints Neurologic: Reports system reviewed and no additional complaints, except as documented PMFSH Past Medical History Attestation statement: The following information was validated with the patient. Medical History Anxiety Anxiety and depression Cervical herniated disc Migraine Migraines Surgical History History of carpal tunnel release of both wrists Family History Family History Mother Thyroid cancer Arthritis Pre-diabetes Father Heart disease History of heart attack Social History Social History Alcohol intake: never Smoking Status: Never smoker Use of substances other than those prescribed or required for medical reasons: No Advance Directives: No Advance Directives Information Provided: No Physical Exam Vital Signs: Vital Signs: Last Vital Signs Temp 98.1 F 06/22/20 09:08 Pulse 71 06/22/20 10:34 Resp 16 06/22/20 09:08 BP 112/61 06/22/20 10:34 Pulse Ox 100 06/22/20 09:08 Body Mass Index 30.2 Const: Orientation/consciousness: oriented to person, oriented to place, oriented to time and patient oriented x3 HENMT: Head: Yes normal to inspection and Yes No palpable skull fracture present Eyes: General: appearance normal, both eyes and all related structures Neck: Neck: Yes normal visual inspection and Yes full ROM Chest: Chest palpation & inspection: normal inspection of the chest and normal palpation of entire chest wall Resp: Effort & Inspection: normal respiratory effort and able to speak in complete sentences Cardio: Rate: regular rate Rhythm: regular rhythm GI: Inspection: Yes normal to inspection Palpation (GI): Soft to palpation, nontender and no guarding Skin: General skin exam: no rashes or lesions noted Neuro: General: oriented to person, oriented to place, oriented to time, patient oriented x3 and gait normal Extrem: General: Yes normal to inspection and Yes full ROM Course Reevaluation(s) Reevaluation #1: Anesthesia is here to place a blood patch for the patient. I also informed Dr duran that the pt was here Time: 09:23 Reevaluation #2: Blood patch done by the anesthesia department she is feeling much better anticipate discharge home Time: 10:47 MDM - Headache Lab Data Result diagrams: 06/22/20 09:28 06/22/20 10:47 Labs: Lab Results 06/22/20 06/22/20 06/22/20 Range/Units 09:28 10:47 10:47 WBC 4.5 L (4.8-10.8) X10*3/uL RBC 4.16 L (4.20-5.50) X10*6/uL Hgb 12.3 (12.0-16.0) g/dl Hct 38.4 (37-47) % MCV 92.3 (80-98) fL MCH 29.6 (27.0-33.0) pg MCHC 32.0 (31.0-35.0) g/dl RDW 12.8 (11.0-16.0) % Plt Count 277 (160-400) X10*3/uL MPV 8.8 L (9.4-12.3) fL Immature Gran % (Auto) 0.2 (0.0-0.4) % Neut % (Auto) 53.6 (45-73) % Lymph % (Auto) 36.5 (20-40) % [place] % (Auto) 7.7 (2-11) % Eos % (Auto) 1.3 (0-4) % Baso % (Auto) 0.7 (0-2) % Lymph # (Auto) 1.7 (1.2-4.9) X10*3/uL [place] # (Auto) 0.4 (0.1-1.2) X10*3/uL Eos # (Auto) 0.1 (0.0-0.4) X10*3/uL Baso # (Auto) 0.0 (0.0-0.2) X10*3/uL Abs Immat Gran (auto) 0.01 (0.00-0.03) X10*3/uL Absolute Neuts (auto) 2.4 (2.0-8.3) X10*3/uL Absolute Nucleated RBC 0.000 (0.0-0.012) X10*3/uL Nucleated RBC % (auto) 0.0 (0.0-0.2) /100WBC Sodium 142 (135-145) mmol/L Potassium 4.7 (3.3-5.1) mmol/L Chloride 112 H (96-108) mmol/L Carbon Dioxide 26 (22-29) mmol/L Anion Gap 9 L (12-20) BUN 11 (9-16) mg/dL Creatinine 0.81 (0.5-1.4) mg/dL Estim Creat Clear Calc 88.3 Estimated GFR > 60 Random Glucose 86 (60-115) mg/dL Calcium 8.2 L D (8.4-10.2) mg/dL Total Bilirubin < 0.2 (0.0-1.0) mg/dL AST 17 (5-31) U/L ALT 23 (0-31) U/L Alkaline Phosphatase 42 D (39-117) U/L Total Protein 6.3 L (6.5-8.0) g/dL Albumin 4.0 (3.5-5.0) g/dL Beta HCG, Quant < 2 mIU/mL Discharge Plan Discharge Clinical Impression: Spinal headache Patient Disposition: Home, Self-Care Instructions: Acute Headache (ED) Prescriptions: No Action zolpidem [Ambien] 5 mg tablet 5 mg PO BEDTIME PRN (Reason: sleep) 30 Days Qty: 30 RF: 0 escitalopram oxalate 10 mg tablet 10 mg PO DAILY Qty: 30 RF: 0 lorazepam [Ativan] 0.5 mg tablet 0.5 mg PO TID PRN (Reason: anxiety) Qty: 10 RF: 0 ghbbwnemph-yxrncxbdybgzr-uvra [Fioricet] 50-300-40 mg capsule 1 cap PO Q6H PRN (Reason: pain) Qty: 20 RF: 0 metoclopramide HCl [Reglan] 10 mg tablet 10 mg PO Q6H PRN (Reason: nausea and vomiting) Qty: 14 RF: 0 meclizine 25 mg tablet 25 mg PO TID PRN (Reason: dizziness) 7 Days Qty: 21 RF: 0 meloxicam 15 mg tablet 15 mg PO DAILY PRN (Reason: pain) 30 Days Qty: 30 RF: 0
[2020-06-22 09:08] VITALS: BP 102/66; PULSE 76; RESP 16; TEMP 36.7; O2SAT 100
[2020-06-22] MEDS: 0.9 % Sodium Chloride 1,000 ML 999 ML IVCONT (09:29)
[2020-06-22 09:37] LABS: MANUAL DIFF FLAG NO
[2020-06-22 09:43] LABS: Basophils Percent Auto 0.7 % (0-2); Eosinophils Absolute Auto 0.1 X10*3/uL (0.0-0.4); Eosinophils Percent Auto 1.3 % (0-4); Hematocrit 38.4 % (37-47); Hemoglobin 12.3 g/dl (12.0-16.0); Imm Gran Abs Auto 0.01 X10*3/uL (0.00-0.03); Imm Gran Pct Auto 0.2 % (0.0-0.4); Lymphocytes Absolute Auto 1.7 X10*3/uL (1.2-4.9); Lymphocytes Percent Auto 36.5 % (20-40); Mean Corpuscular Hemoglobin 29.6 pg (27.0-33.0); Mean Corpuscular Volume 92.3 fL (80-98); Mean Platelet Volume 8.8 fL (9.4-12.3); Monocytes Absolute Auto 0.4 X10*3/uL (0.1-1.2); Monocytes Percent Auto 7.7 % (2-11); Neutrophils Absolute Auto 2.4 X10*3/uL (2.0-8.3); Neutrophils Percent Auto 53.6 % (45-73); Platelet Count 277 X10*3/uL (160-400); Red Blood Count 4.16 X10*6/uL (4.20-5.50); Red Cell Distribution Width 12.8 % (11.0-16.0); White Blood Count 4.5 X10*3/uL (4.8-10.8)
[2020-06-22] MEDS: Ketorolac Tromethamine 15 MG/ML VIAL IV (09:46)
[2020-06-22] MEDS: diphenhydrAMINE HCL 50 MG/ML VIAL 25 MG IVPUSH (09:46)
[2020-06-22] MEDS: Metoclopramide HCl 10 MG/2 ML VIAL IVPUSH (09:47)
[2020-06-22 09:55] VITALS: BP 99/54; PULSE 79
--- NOTE | 2020-06-22 10:20 | PC.NURSE ---
blood patch done by dr. acosta (anesthesiologist), pt tolerated procedure well, denies any headache, pain/disc.
[2020-06-22 10:34] VITALS: BP 112/61; PULSE 71
[2020-06-22 11:25] LABS: HCG Quantitative < 2 mIU/mL
[2020-06-22 11:26] LABS: Alanine Aminotransferase 23 U/L (0-31); Alkaline Phosphatase 42 U/L (39-117); Anion Gap 9 (12-20); Aspartate Amino Transferase 17 U/L (5-31); Bilirubin Total < 0.2 mg/dL (0.0-1.0); Blood Urea Nitrogen 11 mg/dL (9-16); Calcium 8.2 mg/dL (8.4-10.2); Carbon Dioxide 26 mmol/L (22-29); Chloride 112 mmol/L (96-108); Creatinine Clr Calc Pharmacy 88.3; Estimated Glomerular Filt Rate > 60; Glucose Random 86 mg/dL (60-115); Potassium 4.7 mmol/L (3.3-5.1); Sodium 142 mmol/L (135-145); Total Protein 6.3 g/dL (6.5-8.0)
[2020-06-22 11:27] VITALS: BP 104/54; PULSE 67; RESP 16; TEMP 36.7; O2SAT 99
--- NOTE | 2020-06-22 13:11 | W.PM.CCHP ---
Procedures Procedure Note Procedure Note: Pt developed headache worsening in vertical position after diagnostic spinal tap 2 days ago. It is 8~10 in intensity and pt can not work. On evaluation, her neurological status was without gross abnormality. I explained to her the risks and benefits both the invasive and conservative treatments.She definitevly wanted epidural blood patch. In the ED, Pt was in sitting position, her lower back was cleansed with chlorhexidie as weell the right antecubital area. #8 g Touhy needle was inserted into L3-[address] and its advancement barbara the epidural space was confirmed with loss of resistance technique. The antecubital area was recleansed and 20 ml blood was drawn, which was slowly injected into the epidural space. The pt CARPENTER disappeared completely, she did not report pressure in the back or neck. There was no immediate complication.I gave her instructios that if she feltfever, malaise, back pain or swelling, any neurological change, sheshould return to ED, Pt was observed in ED for 30 mins and was discharged home in stable condition.
== END 2020-06-22 11:54 | disposition home or self-care (01) ==
PROVIDERS: Emergency Provider Emergency Medicine; PCP Internal Medicine
DX: G97.1 Other reaction to spinal and lumbar puncture (principal); G44.40 Drug-induced headache, not elsewhere classified, not intractable; Z79.899 Other long term (current) drug therapy
CPT/HCPCS: 36415; 80053; 84702; 85025; 96361; 96365; 96375; 99284; J1200; J1885; J2765

== ENCOUNTER 2020-07-30 11:31 | Outpatient (REF) | payer BC, SELFPAY ==
[2020-07-30 12:40] LABS: Glucose Urine UA NEG (NEG); Leukocyte Esterase Urine NEG (NEG); Nitrite Urine NEG (NEG); PH 6.5 (5.0-8.0); Specific Gravity - Urine <= 1.005 (1.005-1.025); Urine Blood 3+ (NEG); Urine Ketones NEG (NEG); Urine Protein NEG (NEG-TRACE)
[2020-07-30 12:41] LABS: Appearance Urine HAZY; Color Urine YELLOW
[2020-07-30 13:17] LABS: Squamous Epithelial Cell Urine 1+ /LPF; WBC Urine 0-2 /HPF (0-4)
[2020-07-30 13:24] LABS: Alanine Aminotransferase 30 U/L (0-31); Albumin Level 4.6 g/dL (3.5-5.0); Alkaline Phosphatase 59 U/L (39-117); Anion Gap 11 (12-20); Aspartate Amino Transferase 23 U/L (5-31); Bilirubin Direct 0.2 mg/dL (0.0-0.5); Bilirubin Total 0.6 mg/dL (0.0-1.0); Blood Urea Nitrogen 10 mg/dL (9-16); Calcium 8.9 mg/dL (8.4-10.2); Carbon Dioxide 27 mmol/L (22-29); Chloride 107 mmol/L (96-108); Estimated Glomerular Filt Rate > 60; Glucose Random 80 mg/dL (60-115); Potassium 4.7 mmol/L (3.3-5.1); Sodium 140 mmol/L (135-145); Total Protein 7.1 g/dL (6.5-8.0)
== END 2020-07-30 11:32 | disposition home or self-care (01) ==
LOC: HO.LAB 11:31
PROVIDERS: PCP Internal Medicine; Visit Provider Psychiatry & Neurology Neurology
DX: G35 Multiple sclerosis (principal)
CPT/HCPCS: 36415; 80048; 80076; 81001

== ENCOUNTER 2020-08-06 13:21 | Outpatient (REF) | payer BC, SELFPAY | END 2020-08-06 13:22 | disposition home or self-care (01) | LOC: HO.MDS 13:21 | PROVIDERS: PCP Internal Medicine; Visit Provider Psychiatry & Neurology Neurology | DX: G35 Multiple sclerosis (principal) | CPT/HCPCS: 96365; J2930 ==

== ENCOUNTER 2020-08-07 13:59 | Outpatient (REF) | payer BC, SELFPAY | END 2020-08-07 14:00 | disposition home or self-care (01) | LOC: HO.MDS 13:59 | PROVIDERS: PCP Internal Medicine; Visit Provider Psychiatry & Neurology Neurology | DX: G35 Multiple sclerosis (principal) | CPT/HCPCS: 96365; J2930 ==

== ENCOUNTER 2020-08-08 14:04 | Outpatient (REF) | payer BC, SELFPAY | END 2020-08-08 14:05 | disposition home or self-care (01) | LOC: HO.MDS 14:04 | PROVIDERS: PCP Internal Medicine; Visit Provider Psychiatry & Neurology Neurology | DX: G35 Multiple sclerosis (principal) | CPT/HCPCS: 96365; J2930 ==

== ENCOUNTER 2020-08-09 13:56 | Outpatient (REF) | payer BC, SELFPAY ==
--- NOTE | ~2020-08-09 | MR_ITS ---
MRI OF THE BRAIN WITHOUT IV CONTRAST INDICATION: MS exacerbation. COMPARISON: MRI brain 04/27/2020. TECHNIQUE: Multiplanar multisequence MR imaging of the brain was obtained without IV contrast. FINDINGS: Stable pattern mild T2 signal changes within the supratentorial periventricular and subcortical white matter in keeping with the reported history of multiple sclerosis. No definite new lesions. Several chronic low T1 signal intensity lesions. There is no hydrocephalus, extra-axial surface collection, or herniation. The major flow voids at the skull base are preserved. There is no acute infarct on diffusion-weighted imaging. There is no intracranial hemorrhage on the gradient recalled echo acquisition. A small focus of mineralization or chronic hemosiderin staining within the right putamen is stable. The cerebellar tonsils are normally positioned. The craniocervical junction is normal. Osseous marrow signal intensity is homogenous. A partially imaged disc herniation at C4-C5 is stable. MR/MR head/brain wo con IMPRESSION: Stable pattern mild lesional burden within the supratentorial periventricular and juxtacortical white matter in keeping with the reported history of multiple sclerosis. No definite new lesions.
== END 2020-08-09 13:57 | disposition home or self-care (01) ==
LOC: HO.MDS 13:56
PROVIDERS: PCP Internal Medicine; Visit Provider Psychiatry & Neurology Neurology
DX: G35 Multiple sclerosis (principal)
CPT/HCPCS: 70551; 96365; J2930

== ENCOUNTER 2020-08-10 11:12 | Outpatient (REF) | payer BC, SELFPAY | END 2020-08-10 11:13 | disposition home or self-care (01) | LOC: HO.MDS 11:12 | PROVIDERS: PCP Internal Medicine; Visit Provider Psychiatry & Neurology Neurology | DX: G35 Multiple sclerosis (principal) | CPT/HCPCS: 96365; J2930 ==

== ENCOUNTER 2020-12-11 09:55 | Outpatient (REF) | payer BC, SELFPAY ==
[2020-12-11 10:51] LABS: Hematocrit 40.5 % (37-47); Hemoglobin 13.1 g/dl (12.0-16.0); Mean Corpuscular HGB Conc 32.3 g/dl (31.0-35.0); Mean Corpuscular Hemoglobin 28.6 pg (27.0-33.0); Mean Corpuscular Volume 88.4 fL (80-98); Mean Platelet Volume 8.4 fL (9.4-12.3); Platelet Count 319 X10*3/uL (160-400); Red Blood Count 4.58 X10*6/uL (4.20-5.50); White Blood Count 3.8 X10*3/uL (4.8-10.8)
[2020-12-11 11:01] LABS: Appearance Urine HAZY; Color Urine YELLOW; Glucose Urine UA NEG (NEG); Leukocyte Esterase Urine NEG (NEG); Nitrite Urine NEG (NEG); PH 6.5 (5.0-8.0); Urine Blood 1+ (NEG); Urine Ketones NEG (NEG); Urine Protein NEG (NEG-TRACE)
[2020-12-11 11:14] LABS: Alanine Aminotransferase 23 U/L (0-31); Alkaline Phosphatase 61 U/L (39-117); Aspartate Amino Transferase 21 U/L (5-31); Bilirubin Direct 0.2 mg/dL (0.0-0.5); Bilirubin Total 0.5 mg/dL (0.0-1.0); Total Protein 7.7 g/dL (6.5-8.0)
[2020-12-11 12:10] LABS: Bacteria Urine 1+ /LPF; Mucus Urine 1+ /LPF; Squamous Epithelial Cell Urine 2+ /LPF; WBC Urine 0-2 /HPF (0-4)
== END 2020-12-11 09:56 | disposition home or self-care (01) ==
LOC: HO.LAB 09:55
PROVIDERS: PCP Internal Medicine; Visit Provider Psychiatry & Neurology Neurology
DX: G35 Multiple sclerosis (principal); N32.89 Other specified disorders of bladder
CPT/HCPCS: 36415; 80076; 81001; 81003; 85027

== ENCOUNTER 2020-12-19 13:21 | Outpatient (REF) | payer BC, SELFPAY | END 2020-12-19 13:22 | disposition home or self-care (01) | LOC: HO.MDS 13:21 | PROVIDERS: Visit Provider Psychiatry & Neurology Neurology | DX: G35 Multiple sclerosis (principal) | CPT/HCPCS: 96365; J2930 ==

== ENCOUNTER 2020-12-20 13:40 | Outpatient (REF) | payer BC, SELFPAY | END 2020-12-20 13:41 | disposition home or self-care (01) | LOC: HO.MDS 13:40 | PROVIDERS: PCP Internal Medicine; Visit Provider Psychiatry & Neurology Neurology | DX: G35 Multiple sclerosis (principal) | CPT/HCPCS: 96365; J2930 ==

== ENCOUNTER 2020-12-21 07:35 | Outpatient (REF) | payer BC, SELFPAY | END 2020-12-21 07:36 | disposition home or self-care (01) | LOC: HO.MDS 07:35 | PROVIDERS: PCP Internal Medicine; Visit Provider Psychiatry & Neurology Neurology | DX: G35 Multiple sclerosis (principal) | CPT/HCPCS: 96365; J2930 ==

== ENCOUNTER 2021-09-11 11:59 | Outpatient (REF) | payer BC, SELFPAY ==
--- NOTE | ~2021-09-11 | XR_ITS ---
EXAMINATION: XR WRIST, LEFT CLINICAL INFORMATION: Sprain COMPARISON: None TECHNIQUE: 4 views of the left wrist. FINDINGS: The bones and soft tissues are normal. No fracture. Alignment is anatomic with normal joint spaces. No erosions or abnormal soft tissue calcifications. XR/XR wrist LT min 3V IMPRESSION: Normal left wrist.
== END 2021-09-11 12:00 | disposition home or self-care (01) ==
LOC: HO.HMGCX 11:59
PROVIDERS: Visit Provider Internal Medicine
DX: S63.502A Unspecified sprain of left wrist, initial encounter (principal)
CPT/HCPCS: 73110